=== PATIENT | male | born 1985 | race African-American/Black ===

== ENCOUNTER 2018-08-12 11:03 | Emergency (ER) | payer SELFPAY ==
[2018-08-12] MEDS ORDERED: Morphine 4 MG/ML VIAL ONE ×2 (11:44→12:32)
[2018-08-12] MEDS ORDERED: Ondansetron ODT 4 MG TAB ONE (11:44)
[2018-08-12] MEDS ORDERED: Sodium Chloride 0.9% 1,000 ML ONE (11:45)
[2018-08-12 11:48] LABS: #Basophils 0.1 thou/uL (0.0-0.2); #Lymphocytes 1.7 thou/uL (1.20-3.40); #Monocytes 0.8 thou/uL (0.11-0.59); #Neutrophils 8.2 thou/uL (1.40-6.50); %Basophils 0.7 % (0.0-1.0); %Eosinophils 0.2 % (0.0-10.0); %Lymphocytes 15.4 % (21.0-51.0); %Monocytes 7.2 % (0.0-10.0); %Neutrophils 76.4 % (42.0-75.0); Hemoglobin 14.4 g/dL (14.0-18.0); Mean Corpuscular HGB CONC 32.4 g/dL (32.0-36.0); Mean Corpuscular Hemoglobin 28.9 pg (27.0-31.0); Mean Corpuscular Volume 88.9 fL (78.0-98.0); Platelet Count 209 thou/uL (130-400); RBC Distribution Width 12.3 % (11.5-14.5); White Blood Cell (WBC) Count 10.7 thou/uL (4.8-10.8)
[2018-08-12 12:01] LABS: Bilirubin Negative (Negative); Blood, Urine Trace (Negative); Clarity Clear (Clear); Glucose, Urine (Dipstick) Negative (Negative); Leukocyte Negative (Negative); Nitrite Negative (Negative); Protein, Urine (Dipstick) 30 mg/dL (Neg-Trace); Specific Gravity, Urine 1.025 (1.005-1.030); Urobilinogen 0.2 mg/dL (0.2-1.0); pH, Urine 5.5 (5.0-9.0)
[2018-08-12 12:03] LABS: ALT (SGPT) 21 U/L (8-55); AST (SGOT) 20 U/L (5-34); Albumin 4.7 g/dL (3.5-5.0); Alkaline Phosphatase 50 U/L (40-150); Anion Gap 14 mmol/L (10-20); BUN (Urea Nitrogen) 13 mg/dL (8.9-20.6); Bilirubin, Total 0.4 mg/dL (0.2-1.2); Calc. Creatinine Clearance 0 mL/min (70-130); Calcium 9.8 mg/dL (7.8-10.44); Carbon Dioxide 25 mmol/L (22-29); Chloride 104 mmol/L (98-107); Estimated GFR-MDRD 58; Globulin 3.3 g/dL (2.4-3.5); Glucose 90 mg/dL (70-105); Potassium 4.2 mmol/L (3.5-5.1); Sodium 139 mmol/L (136-145)
[2018-08-12 12:10] LABS: Squamous Epithelial 0-3 HPF (0-3); WBC/HPF 0-3 HPF (0-3)
--- NOTE | 2018-08-12 13:45 | CT ---
CT ABDOMEN AND PELVIS WITH IV CONTRAST 08/12/2018 CLINICAL INFORMATION: Right lower quadrant abdominal pain with radiation to right flank. COMPARISON: None. Technique: Multiple contiguous axial CT images are obtained through the abdomen and pelvis with IV contrast. Cor onal reformatted images are provided. FINDINGS: Lower Chest: Clear. Vessels: Abdominal aorta is normal in caliber. Abdomen: Portal vein:Patent Gallbladder: No calcified gallstones. Normal caliber wall. Liver: within normal limits. Pancreas: within normal limits. Spleen: within normal limits. Adrenals: within normal limits. Kidneys: A subcentimeter too small to characterize hypodense lesion is seen in the midportion left ki dney. There is a punctate nonobstructing calculus in the midportion right kidney. There is delayed nephrogram phase of enhancement on the right compared to the left. There is mild rig ht hydronephrosis and dilatation of the right ureter. An approximately 5 mm calculus is seen at the right UVJ. Peritoneum: No ascites or free air; no fluid collection. Bowel: The opacified small bowel is normal in caliber.S mall amount of retained fecal material is see n in the ascending and transverse colon.The appendix is visualized and normal in caliber. Mesentery and Retroperitoneum: No enlarged mesenteric or retroperitoneal lymph nodes. Abdominal Wall: within normal limits. Pelvis: Reproductive Organs: No pelvic masses. Pelvis within normal limits. Bladder: Urinary bladder is mostly decompressed and not well evaluated on this exam. Bones: within normal limits. IMPRESSION: 1. Partially obstructing right UVJ calculus measuring 5 mm. 2. Punctate nonobstructing right renal calculus. 3. Subcentimeter too small to characterize hypodense lesion left kidney. 4. No CT evidence of appendicitis.
[2018-08-12] MEDS ORDERED: Tamsulosin HCl 0.4 MG CAP ONE (13:52)
[2018-08-12] MEDS ORDERED: Ketorolac Tromethamine 30 MG/ML VIAL ONE (13:52)
[2018-08-12] MEDS ORDERED: Iopamidol 370 76% 100 ML VIAL ONE (18:06)
== END 2018-08-12 14:05 | disposition home or self-care (01) ==
LOC: NAV ERS 11:03
DX: N20.0 Calculus of kidney (principal); F17.210 Nicotine dependence, cigarettes, uncomplicated
CPT/HCPCS: 74177; 80053; 81003; 81015; 85025; 87086; 96361; 96374; 96375; 96376; J1885; J2270; J7050; Q0162; Q9967